=== PATIENT | female | born 1975 | race Caucasian/White ===

== ENCOUNTER 2017-03-11 08:26 | Outpatient (CLI) | payer BC ==
--- NOTE | 2017-03-12 10:37 | MMO ---
BILATERAL SCREENING MAMMOGRAM: DATE: 03/11/17 HISTORY: 42-year-old female for baseline screening mammography. COMPARISON: None. FINDINGS: Bilateral MLO and CC views of the breasts show heterogeneously dense breast parenchyma, which may low er the sensitivity of mammography. Benign-appearing calcifications are seen in both breasts. There is no evidence of suspicious mass, suspicious cluster of microcalcifications, or area of architectural distortion. Interpretation of this mammogram was performed with the assistance of computer-aided detection. IMPRESSION: BIRADS 2: Benign Finding(s) Annual screening mammography is recommended. POS: [facility]
== END 2017-03-11 08:27 | disposition home or self-care (01) ==
LOC: SCSMAMMO 08:26
PROVIDERS: ATTEND Family Medicine
DX: Z12.31 Encounter for screening mammogram for malignant neoplasm of breast (principal)
CPT/HCPCS: 77067